=== PATIENT | male | born 1980 | race Hispanic/Latino ===

== ENCOUNTER 2022-03-13 22:04 | Inpatient (IN) | payer BC, SELFPAY ==
[2022-03-13] MEDS ORDERED: Acetaminophen 500 MG TAB ONE (23:08)
[2022-03-13 23:40] LABS: #Lymphocytes 0.8 thou/uL (1.20-3.40); #Monocytes 0.7 thou/uL (0.11-0.59); #Neutrophils 9.7 thou/uL (1.40-6.50); %Eosinophils 0.4 % (0.0-10.0); %Lymphocytes 7.4 % (21.0-51.0); %Monocytes 6.3 % (0.0-10.0); %Neutrophils 85.9 % (42.0-75.0); Hemoglobin 8.2 g/dL (14.0-18.0); Mean Corpuscular HGB CONC 33.4 g/dL (32.0-36.0); Mean Corpuscular Hemoglobin 31.7 pg (27.0-31.0); Mean Corpuscular Volume 94.8 fL (78.0-98.0); Mean Platelet Volume 8.6 fL (7.4-10.4); Platelet Count 270 thou/uL (130-400); RBC Distribution Width 12.7 % (11.5-14.5); Red Blood Cell (RBC) Count 2.58 mill/uL (4.70-6.10); White Blood Cell (WBC) Count 11.3 thou/uL (4.8-10.8)
[2022-03-13 23:56] LABS: SARS-CoV-2 NAA Rapid Test Not Detected (NotDetected)
[2022-03-14 00:01] LABS: ALT (SGPT) 24 U/L (8-55); AST (SGOT) 23 U/L (5-34); Albumin 3.6 g/dL (3.5-5.0); Alkaline Phosphatase 130 U/L (40-110); Anion Gap 16 mmol/L (10-20); BUN (Urea Nitrogen) 61 mg/dL (8.9-20.6); Bilirubin, Total 0.4 mg/dL (0.2-1.2); Calc. Creatinine Clearance 0 mL/min (70-130); Calcium 8.7 mg/dL (7.8-10.44); Carbon Dioxide 20 mmol/L (22-29); Chloride 106 mmol/L (98-107); Estimated GFR 15; Globulin 3.5 g/dL (2.4-3.5); Glucose 213 mg/dL (70-105); Potassium 4.2 mmol/L (3.5-5.1); Protein, Total 7.1 g/dL (6.0-8.3); Sodium 138 mmol/L (136-145)
[2022-03-14] MEDS ORDERED: cefTRIAXone\\ROCEPHIN 1 GM VIAL ONE (00:13)
[2022-03-14] MEDS ORDERED: Ondansetron PF 4 MG/2 ML Vial ONE (00:13)
[2022-03-14] MEDS ORDERED: Azithromycin 500 MG VIAL ONE (00:51)
[2022-03-14 00:59] LABS: Bilirubin Negative (Negative); Blood, Urine 2+ (Negative); Clarity Clear (Clear); Glucose, Urine (Dipstick) Greater than 1000 mg/dL (Negative); Ketone, Urine Negative (Negative); Leukocyte Negative Leu/uL (Negative); Nitrite Negative (Negative); Protein, Urine (Dipstick) 600 mg/dL (Neg-Trace); RBC/HPF 0-3 HPF (0-3); Specific Gravity, Urine 1.014 (1.002-1.036); Squamous Epithelial 0-3 HPF (0-3); Urobilinogen Normal mg/dL (Less than 2); WBC/HPF 0-3 HPF (0-3); pH, Urine 6.5 (5.0-9.0)
[2022-03-14 01:15] LABS: Bacteria/HPF Rare-Few HPF (None Seen)
[2022-03-14] MEDS ORDERED: Acetaminophen 500 MG TAB ONE (01:29)
[2022-03-14] MEDS ORDERED: Ondansetron PF 4 MG/2 ML Vial IVP PRN (03:42)
[2022-03-14] MEDS ORDERED: Morphine 2 MG/ML VIAL SLOW IVP PRN (03:48)
[2022-03-14] MEDS ORDERED: Dextrose 5% in Water 1,000 ML IV PRN (03:49)
[2022-03-14] MEDS ORDERED: Dextrose 50% Abboject 50 ML SYRINGE SLOW IVP PRN (03:49)
[2022-03-14] MEDS ORDERED: HumaLOG 300 UNITS/3 ML VIAL SC PRN ×2 (03:49)
[2022-03-14] MEDS ORDERED: Morphine 2 MG/ML VIAL ONE (04:17)
[2022-03-14] MEDS ORDERED: Benzonatate 100 MG CAP PO PRN (04:25)
[2022-03-14 04:49] LABS: Legionella Urinary Ag Negative (Negative); Strep pneumo Urine Ag NEGATIVE (NEGATIVE)
[2022-03-14 05:23] LABS: Iron 9 ug/dL (65-175); Iron Binding Capacity, Total 200 mcg/dL (261-462)
[2022-03-14 05:26] LABS: Anion Gap 15 mmol/L (10-20); BUN (Urea Nitrogen) 60 mg/dL (8.9-20.6); Calc. Creatinine Clearance 0 mL/min (70-130); Calcium 8.3 mg/dL (7.8-10.44); Carbon Dioxide 21 mmol/L (22-29); Chloride 107 mmol/L (98-107); Estimated GFR 15; Glucose 161 mg/dL (70-105); Iron 11 ug/dL (65-175); Iron Binding Capacity, Total 195 mcg/dL (261-462); Potassium 4.1 mmol/L (3.5-5.1); Sodium 139 mmol/L (136-145)
[2022-03-14 05:29] LABS: Mean Corpuscular HGB CONC 32.9 g/dL (32.0-36.0); Mean Corpuscular Hemoglobin 30.8 pg (27.0-31.0); Mean Corpuscular Volume 93.7 fL (78.0-98.0); Mean Platelet Volume 8.6 fL (7.4-10.4); Platelet Count 250 thou/uL (130-400); RBC Distribution Width 12.8 % (11.5-14.5); Red Blood Cell (RBC) Count 2.61 mill/uL (4.70-6.10); White Blood Cell (WBC) Count 5.9 thou/uL (4.8-10.8)
[2022-03-14 05:56] LABS: Band 31 % (5-11); Lymphocytes 11 % (21-51); MDiff Complete? YES; Metamyelocyte 3 % (0-0); Monocytes 8 % (0-10); Myelocyte 1 % (0-0); Neutrophil 44 % (42-75); Platelet Morphology Comment Appears Adequate; RBC Morphology Normal
[2022-03-14] MEDS: Acetaminophen 325 MG TAB PO PRN (10:42)
[2022-03-14 11:24] VITALS: BMI 35.6
[2022-03-14] MEDS ORDERED: Furosemide 100 MG/10 ML VIAL SLOW IVP SCH (18:47)
[2022-03-14] MEDS: Carvedilol 6.25 MG TAB PO SCH (21:22)
[2022-03-15] MEDS: cefTRIAXone\\ROCEPHIN 2 GM in Sodium Chloride 0.9% 100 ML IVPB SCH (00:01)
[2022-03-15] MEDS: Azithromycin 500 MG in Sodium Chloride 0.9% 250 ML 250 ML IVPB SCH (00:30)
[2022-03-15 05:46] LABS: #Eosinphils 0.1 thou/uL (0.0-0.7); #Lymphocytes 1.3 thou/uL (1.20-3.40); #Monocytes 0.5 thou/uL (0.11-0.59); #Neutrophils 6.6 thou/uL (1.40-6.50); %Basophils 0.5 % (0.0-1.0); %Eosinophils 0.7 % (0.0-10.0); %Lymphocytes 15.8 % (21.0-51.0); %Monocytes 5.3 % (0.0-10.0); %Neutrophils 77.7 % (42.0-75.0); Mean Corpuscular HGB CONC 32.3 g/dL (32.0-36.0); Mean Corpuscular Hemoglobin 31.1 pg (27.0-31.0); Mean Corpuscular Volume 96.2 fL (78.0-98.0); Mean Platelet Volume 8.9 fL (7.4-10.4); Platelet Count 221 thou/uL (130-400); RBC Distribution Width 12.6 % (11.5-14.5); Red Blood Cell (RBC) Count 2.26 mill/uL (4.70-6.10); White Blood Cell (WBC) Count 8.5 thou/uL (4.8-10.8)
[2022-03-15] MEDS: Furosemide 40 MG/4 ML VIAL SLOW IVP SCH ×2 (05:58→14:23)
[2022-03-15 06:01] LABS: Anion Gap 15 mmol/L (10-20); BUN (Urea Nitrogen) 66 mg/dL (8.9-20.6); Calc. Creatinine Clearance 28 mL/min (70-130); Calcium 8.2 mg/dL (7.8-10.44); Carbon Dioxide 22 mmol/L (22-29); Chloride 106 mmol/L (98-107); Estimated GFR 15; Glucose 133 mg/dL (70-105); Potassium 4.7 mmol/L (3.5-5.1); Sodium 138 mmol/L (136-145)
[2022-03-15] MEDS ORDERED: Iron, Sodium Ferric Gluconate 250 MG in Sodium Chloride 0.9% 250 ML 250 ML IVPB SCH (09:30)
[2022-03-15] MEDS: Ferrous Sulfate 325 MG TAB PO SCH (10:35)
[2022-03-15] MEDS: Amlodipine 10 MG TAB PO SCH (10:36)
[2022-03-15] MEDS: Carvedilol 6.25 MG TAB PO SCH ×2 (10:36→20:59)
[2022-03-15] MEDS: Minoxidil 10 MG TAB PO SCH (10:36)
[2022-03-15] MEDS: HumuLIN 70/30 (300 UNITS/3 ML VIAL) SC SCH (11:15)
[2022-03-15 12:24] LABS: Hemoglobin 7.7 g/dL (14.0-18.0)
[2022-03-15] MEDS: Acetaminophen 325 MG TAB PO PRN (20:59)
[2022-03-16] MEDS: cefTRIAXone\\ROCEPHIN 2 GM in Sodium Chloride 0.9% 100 ML IVPB SCH ×2 (01:15→23:17)
[2022-03-16] MEDS: Azithromycin 500 MG in Sodium Chloride 0.9% 250 ML 250 ML IVPB SCH ×2 (01:41→23:46)
[2022-03-16 04:49] LABS: #Eosinphils 0.2 thou/uL (0.0-0.7); #Lymphocytes 1.6 thou/uL (1.20-3.40); #Monocytes 0.4 thou/uL (0.11-0.59); #Neutrophils 6.1 thou/uL (1.40-6.50); %Basophils 0.5 % (0.0-1.0); %Lymphocytes 18.7 % (21.0-51.0); %Neutrophils 72.8 % (42.0-75.0); Hemoglobin 6.8 g/dL (14.0-18.0); Mean Corpuscular HGB CONC 32.1 g/dL (32.0-36.0); Mean Corpuscular Hemoglobin 30.6 pg (27.0-31.0); Mean Corpuscular Volume 95.3 fL (78.0-98.0); Mean Platelet Volume 8.7 fL (7.4-10.4); Platelet Count 253 thou/uL (130-400); RBC Distribution Width 12.6 % (11.5-14.5); Red Blood Cell (RBC) Count 2.21 mill/uL (4.70-6.10); White Blood Cell (WBC) Count 8.4 thou/uL (4.8-10.8)
[2022-03-16 05:00] LABS: Anion Gap 14 mmol/L (10-20); BUN (Urea Nitrogen) 65 mg/dL (8.9-20.6); Calc. Creatinine Clearance 28 mL/min (70-130); Calcium 8.1 mg/dL (7.8-10.44); Carbon Dioxide 24 mmol/L (22-29); Chloride 106 mmol/L (98-107); Estimated GFR 14; Glucose 156 mg/dL (70-105); Potassium 4.5 mmol/L (3.5-5.1); Sodium 139 mmol/L (136-145)
[2022-03-16] MEDS: Furosemide 40 MG/4 ML VIAL SLOW IVP SCH ×2 (05:51→16:43)
[2022-03-16] MEDS: Empagliflozin 10 MG TAB PO SCH (09:00)
[2022-03-16] MEDS: Ferrous Sulfate 325 MG TAB PO SCH (09:00)
[2022-03-16] MEDS ORDERED: Epoetin (ESRD) 10,000 UNITS/ML VIAL SC SCH (09:00)
[2022-03-16] MEDS: Amlodipine 10 MG TAB PO SCH (09:00)
[2022-03-16] MEDS: Minoxidil 10 MG TAB PO SCH (09:02)
[2022-03-16] MEDS: HumuLIN 70/30 (300 UNITS/3 ML VIAL) SC SCH (09:04)
[2022-03-16] MEDS: Iron, Sodium Ferric Gluconate 250 MG in Sodium Chloride 0.9% 250 ML 250 ML IVPB SCH (09:05)
[2022-03-16] MEDS: hydrALAZINE 20 MG/ML VIAL SLOW IVP PRN (16:43)
[2022-03-16] MEDS: hydrALAZINE 25 MG TAB PO SCH (20:27)
[2022-03-16] MEDS ORDERED: Carvedilol 25 MG TAB PO SCH (21:00)
[2022-03-17 04:46] LABS: #Eosinphils 0.3 thou/uL (0.0-0.7); #Lymphocytes 1.5 thou/uL (1.20-3.40); #Monocytes 0.5 thou/uL (0.11-0.59); #Neutrophils 5.6 thou/uL (1.40-6.50); %Basophils 0.4 % (0.0-1.0); %Eosinophils 3.2 % (0.0-10.0); %Lymphocytes 19.3 % (21.0-51.0); %Monocytes 5.9 % (0.0-10.0); %Neutrophils 71.1 % (42.0-75.0); Hemoglobin 8.1 g/dL (14.0-18.0); Mean Corpuscular HGB CONC 32.4 g/dL (32.0-36.0); Mean Corpuscular Hemoglobin 31.1 pg (27.0-31.0); Mean Corpuscular Volume 96.1 fL (78.0-98.0); Mean Platelet Volume 8.8 fL (7.4-10.4); Platelet Count 289 thou/uL (130-400); RBC Distribution Width 12.3 % (11.5-14.5); Red Blood Cell (RBC) Count 2.59 mill/uL (4.70-6.10); White Blood Cell (WBC) Count 7.9 thou/uL (4.8-10.8)
[2022-03-17 05:09] LABS: Anion Gap 17 mmol/L (10-20); BUN (Urea Nitrogen) 65 mg/dL (8.9-20.6); Calc. Creatinine Clearance 28 mL/min (70-130); Calcium 8.3 mg/dL (7.8-10.44); Carbon Dioxide 16 mmol/L (22-29); Chloride 109 mmol/L (98-107); Estimated GFR 15; Glucose 105 mg/dL (70-105); Potassium 4.3 mmol/L (3.5-5.1); Sodium 138 mmol/L (136-145)
[2022-03-17] MEDS: Docusate 100 MG CAP PO PRN (06:19)
[2022-03-17] MEDS: Furosemide 40 MG/4 ML VIAL SLOW IVP SCH ×2 (06:19→14:14)
[2022-03-17] MEDS: Ferrous Sulfate 325 MG TAB PO SCH (09:01)
[2022-03-17] MEDS: Empagliflozin 10 MG TAB PO SCH (09:01)
[2022-03-17] MEDS: Amlodipine 10 MG TAB PO SCH (09:01)
[2022-03-17] MEDS: HumuLIN 70/30 (300 UNITS/3 ML VIAL) SC SCH (09:02)
[2022-03-17] MEDS: hydrALAZINE 25 MG TAB PO SCH (09:03)
[2022-03-17] MEDS: Labetalol HCl 100 MG TAB PO SCH ×2 (09:03→20:39)
[2022-03-17] MEDS: Minoxidil 10 MG TAB PO SCH (09:07)
[2022-03-17] MEDS ORDERED: Sodium Bicarbonate Tab 325 MG TAB PO SCH (10:30)
[2022-03-17] MEDS: Iron, Sodium Ferric Gluconate 250 MG in Sodium Chloride 0.9% 250 ML 250 ML IVPB SCH (11:28)
[2022-03-17] MEDS: Sodium Bicarbonate Tab 325 MG TAB PO SCH (20:39)
[2022-03-17] MEDS: Amoxicillin/Potassium Clav 500 MG TAB PO SCH (20:39)
[2022-03-17] MEDS: NIFEdipine XL 60 MG TAB PO SCH (20:39)
[2022-03-18] MEDS: Furosemide 40 MG/4 ML VIAL SLOW IVP SCH (05:53)
[2022-03-18] MEDS: Docusate 100 MG CAP PO PRN (05:53)
[2022-03-18] MEDS: Amoxicillin/Potassium Clav 500 MG TAB PO SCH ×2 (09:38→21:27)
[2022-03-18] MEDS: Ferrous Sulfate 325 MG TAB PO SCH (09:38)
[2022-03-18] MEDS: HumuLIN 70/30 (300 UNITS/3 ML VIAL) SC SCH (09:39)
[2022-03-18] MEDS: Empagliflozin 10 MG TAB PO SCH (09:39)
[2022-03-18] MEDS: Labetalol HCl 100 MG TAB PO SCH ×2 (09:42→21:27)
[2022-03-18] MEDS: NIFEdipine XL 60 MG TAB PO SCH ×2 (09:42→21:27)
[2022-03-18] MEDS: Iron, Sodium Ferric Gluconate 250 MG in Sodium Chloride 0.9% 250 ML 250 ML IVPB SCH (09:42)
[2022-03-18] MEDS: Sodium Bicarbonate Tab 325 MG TAB PO SCH ×2 (09:44→21:26)
[2022-03-18] MEDS: Torsemide 100 MG TAB PO SCH (09:45)
[2022-03-18] MEDS ORDERED: Epoetin (ESRD) 10,000 UNITS/ML VIAL SC SCH (10:00)
[2022-03-19] MEDS ORDERED: Polyethylene Glycol 3350 17 GM Packet PO SCH (09:00)
[2022-03-19] MEDS ORDERED: Senokot S 8.6-50 MG TAB PO SCH (09:00)
[2022-03-19] MEDS ORDERED: Fluticasone Propionate Nasal Spray 16 gm Bottle NASAL SCH (09:15)
[2022-03-19] MEDS: Ferrous Sulfate 325 MG TAB PO SCH (09:16)
[2022-03-19] MEDS: Sodium Bicarbonate Tab 325 MG TAB PO SCH (09:17)
[2022-03-19] MEDS: Labetalol HCl 100 MG TAB PO SCH (09:17)
[2022-03-19] MEDS: Empagliflozin 10 MG TAB PO SCH (09:18)
[2022-03-19] MEDS: NIFEdipine XL 60 MG TAB PO SCH (09:18)
[2022-03-19] MEDS: Amoxicillin/Potassium Clav 500 MG TAB PO SCH (09:19)
[2022-03-19] MEDS: Torsemide 100 MG TAB PO SCH (09:19)
[2022-03-19 10:08] LABS: Hemoglobin 8.6 g/dL (14.0-18.0); Mean Corpuscular HGB CONC 32.1 g/dL (32.0-36.0); Mean Corpuscular Hemoglobin 30.6 pg (27.0-31.0); Mean Corpuscular Volume 95.4 fL (78.0-98.0); Mean Platelet Volume 7.8 fL (7.4-10.4); Platelet Count 349 thou/uL (130-400); RBC Distribution Width 12.7 % (11.5-14.5); Red Blood Cell (RBC) Count 2.82 mill/uL (4.70-6.10); White Blood Cell (WBC) Count 8.7 thou/uL (4.8-10.8)
[2022-03-19 10:38] LABS: Anion Gap 18 mmol/L (10-20); BUN (Urea Nitrogen) 60 mg/dL (8.9-20.6); BUN/Creatinine Ratio 11.86; Calc. Creatinine Clearance 26 mL/min (70-130); Calcium 8.3 mg/dL (7.8-10.44); Carbon Dioxide 21 mmol/L (22-29); Chloride 105 mmol/L (98-107); Estimated GFR 14; Glucose 157 mg/dL (70-105); Phosphorus 5.2 mg/dL (2.3-4.7); Potassium 3.8 mmol/L (3.5-5.1); Sodium 140 mmol/L (136-145)
[2022-03-19] MEDS: HumuLIN 70/30 (300 UNITS/3 ML VIAL) SC SCH (10:54)
[2022-03-19] MEDS: hydrALAZINE 20 MG/ML VIAL SLOW IVP PRN (11:01)
[2022-03-19] MEDS ORDERED: Labetalol HCl 100 MG TAB PO SCH ×2 (13:30→21:00)
[2022-03-19 17:21] VITALS: BP 156/78; TEMP 97.6
[2022-03-20] MEDS ORDERED: NPH, Human Insulin Isophane 300 UNIT/3 ML VIAL SC SCH (09:00)
[2022-03-20] MEDS ORDERED: Fluticasone Propionate Nasal Spray 16 gm Bottle NASAL SCH (09:00)
== END 2022-03-19 18:20 | disposition home or self-care (01) | DRG 871 ==
LOC: ERS 22:04 → ERHOLD 03-14 01:08 → 2SW 03-14 01:11
PROVIDERS: ADMIT Internal Medicine; ATTEND Internal Medicine
PROC: 3E03329 Introduction of Other Anti-infective into Peripheral Vein, Percutaneous Approach (ICD-10-PCS; principal; 2022-03-14)
PROC: 30233N1 Transfusion of Nonautologous Red Blood Cells into Peripheral Vein, Percutaneous Approach (ICD-10-PCS; 2022-03-16)
DX: A41.9 Sepsis, unspecified organism (principal); J18.9 Pneumonia, unspecified organism; J96.01 Acute respiratory failure with hypoxia; R04.2 Hemoptysis; N17.9 Acute kidney failure, unspecified; E87.2 Acidosis; D62 Acute posthemorrhagic anemia; I13.0 Hypertensive heart and chronic kidney disease with heart failure and stage 1 through stage 4 chronic kidney disease, or unspecified chronic kidney disease; N18.4 Chronic kidney disease, stage 4 (severe); Z20.822 Contact with and (suspected) exposure to COVID-19; D63.1 Anemia in chronic kidney disease; I50.9 Heart failure, unspecified; E11.22 Type 2 diabetes mellitus with diabetic chronic kidney disease; I49.3 Ventricular premature depolarization; R65.20 Severe sepsis without septic shock; K59.00 Constipation, unspecified; E66.9 Obesity, unspecified; I34.0 Nonrheumatic mitral (valve) insufficiency; I45.10 Unspecified right bundle-branch block; D50.9 Iron deficiency anemia, unspecified; I87.8 Other specified disorders of veins; Z89.421 Acquired absence of other right toe(s); Z79.899 Other long term (current) drug therapy; Z79.4 Long term (current) use of insulin; Z68.34 Body mass index [BMI] 34.0-34.9, adult
CPT/HCPCS: 36415; 36416; 36430; 71045; 71250; 80048; 80053; 80069; 81003; 81015; 82728; 83540; 83550; 83605; 83880; 83970; 84484; 85025; 85027; 86850; 86900; 86901; 87040; 87070; 87086; 87116; 87205; 87206; 87449; 87899; 93306; 96365; 96367; 96375; J0360; J0456; J0696; J1815; J1940; J2270; J2405; J2916; J3490; J7050; P9016; Q4081; U0002

== ENCOUNTER 2022-07-30 12:40 | Inpatient (IN) | payer BC, MEDICAID, SELFPAY ==
[2022-07-30 13:23] LABS: #Eosinphils 0.1 thou/uL (0.0-0.7); #Lymphocytes 1.5 thou/uL (1.20-3.40); #Monocytes 0.2 thou/uL (0.11-0.59); #Neutrophils 2.8 thou/uL (1.40-6.50); %Basophils 0.5 % (0.0-1.0); %Eosinophils 2.8 % (0.0-10.0); %Lymphocytes 31.7 % (21.0-51.0); %Monocytes 4.3 % (0.0-10.0); %Neutrophils 60.6 % (42.0-75.0); Hemoglobin 7.4 g/dL (14.0-18.0); Mean Corpuscular HGB CONC 32.1 g/dL (32.0-36.0); Mean Corpuscular Hemoglobin 31.1 pg (27.0-31.0); Mean Corpuscular Volume 96.9 fl (78.0-98.0); Mean Platelet Volume 8.7 fL (7.4-10.4); Platelet Count 196 10x3/uL (130-400); RBC Distribution Width 12.9 % (11.5-14.5); Red Blood Cell (RBC) Count 2.37 mill/uL (4.70-6.10); White Blood Cell (WBC) Count 4.6 10x3/uL (4.8-10.8)
[2022-07-30 13:46] LABS: ALT (SGPT) 18 U/L (8-55); AST (SGOT) 21 U/L (5-34); Albumin 2.5 g/dL (3.5-5.0); Alkaline Phosphatase 91 U/L (40-110); Anion Gap 11 mmol/L (10-20); BUN (Urea Nitrogen) 86 mg/dL (8.9-20.6); Bilirubin, Total 0.3 mg/dL (0.2-1.2); Calc. Creatinine Clearance 0 mL/min (70-130); Calcium 7.5 mg/dL (7.8-10.44); Carbon Dioxide 18 mmol/L (22-29); Chloride 111 mmol/L (98-107); Estimated GFR 8; Globulin 2.6 g/dL (2.4-3.5); Glucose 165 mg/dL (70-105); Lipase 26 U/L (8-78); Potassium 4.3 mmol/L (3.5-5.1); Protein, Total 5.1 g/dL (6.0-8.3); Sodium 136 mmol/L (136-145)
[2022-07-30] MEDS ORDERED: Dextrose 5% in Water 1,000 ML IV PRN (17:33)
[2022-07-30] MEDS ORDERED: Dextrose 50% Abboject 50 ML SYRINGE SLOW IVP PRN (17:33)
[2022-07-30] MEDS ORDERED: Ondansetron PF 4 MG/2 ML Vial IVP PRN (17:33)
[2022-07-30] MEDS ORDERED: Sodium Chloride 0.9% 1,000 ML IV SCH (17:45)
[2022-07-30] MEDS ORDERED: Ondansetron PF 4 MG/2 ML Vial ONE (18:04)
[2022-07-30] MEDS ORDERED: Polyethylene Glycol 3350 17 GM Packet PO SCH (18:30)
[2022-07-30] MEDS ORDERED: Metoclopramide HCl 10 MG/2 ML VIAL IVP SCH (18:30)
[2022-07-30] MEDS ORDERED: Senokot S 8.6-50 MG TAB PO PRN (18:33)
[2022-07-30 18:42] LABS: Hemoglobin A1c 6.7 % (4.0-6.0)
[2022-07-30] MEDS: Amlodipine 5 MG TAB PO SCH ×2 (20:56→21:58)
[2022-07-30] MEDS ORDERED: Sodium Bicarbonate 150 MEQ in Sterile Water Injection 1,000 ML IV SCH (21:30)
[2022-07-30] MEDS: Metoclopramide HCl 10 MG/2 ML VIAL IVP SCH (21:32)
[2022-07-30 23:39] VITALS: BMI 31.0
[2022-07-31] MEDS ORDERED: Furosemide 40 MG/4 ML VIAL SLOW IVP SCH ×2 (00:30→01:30)
[2022-07-31] MEDS ORDERED: cloNIDine 0.1 MG TAB PO SCH (00:45)
[2022-07-31 02:02] LABS: Bacteria/HPF None Seen HPF (None Seen); Bilirubin Negative (Negative); Blood, Urine 2+ (Negative); Clarity Clear (Clear); Glucose, Urine (Dipstick) Greater than 1000 mg/dL (Negative); Ketone, Urine Negative (Negative); Leukocyte Negative Leu/uL (Negative); Nitrite Negative (Negative); Protein, Urine (Dipstick) 300 mg/dL (Neg-Trace); RBC/HPF 0-3 HPF (0-3); Specific Gravity, Urine 1.012 (1.002-1.036); Squamous Epithelial 0-3 HPF (0-3); Urobilinogen Normal mg/dL (Less than 2)
[2022-07-31 02:19] LABS: #Eosinphils 0.2 thou/uL (0.0-0.7); #Monocytes 0.3 thou/uL (0.11-0.59); #Neutrophils 3.5 thou/uL (1.40-6.50); %Basophils 0.6 % (0.0-1.0); %Lymphocytes 32.2 % (21.0-51.0); %Monocytes 5.4 % (0.0-10.0); %Neutrophils 57.7 % (42.0-75.0); Hemoglobin 7.6 g/dL (14.0-18.0); Mean Corpuscular HGB CONC 33.4 g/dL (32.0-36.0); Mean Corpuscular Hemoglobin 32.2 pg (27.0-31.0); Mean Corpuscular Volume 96.4 fl (78.0-98.0); Mean Platelet Volume 8.8 fL (7.4-10.4); Platelet Count 196 10x3/uL (130-400); RBC Distribution Width 12.9 % (11.5-14.5); Red Blood Cell (RBC) Count 2.36 mill/uL (4.70-6.10); White Blood Cell (WBC) Count 6.1 10x3/uL (4.8-10.8)
[2022-07-31 02:53] LABS: Anion Gap 15 mmol/L (10-20); BUN (Urea Nitrogen) 87 mg/dL (8.9-20.6); Calc. Creatinine Clearance 14 mL/min (70-130); Calcium 7.5 mg/dL (7.8-10.44); Carbon Dioxide 15 mmol/L (22-29); Chloride 112 mmol/L (98-107); Estimated GFR 8; Glucose 184 mg/dL (70-105); Iron 92 ug/dL (65-175); Iron Binding Capacity, Total 155 mcg/dL (261-462); Potassium 4.5 mmol/L (3.5-5.1); Sodium 137 mmol/L (136-145)
[2022-07-31] MEDS ORDERED: hydrALAZINE 20 MG/ML VIAL SLOW IVP SCH (03:30)
[2022-07-31 04:27] LABS: Ferritin 889.23 ng/mL (22-322)
[2022-07-31] MEDS: Furosemide 40 MG/4 ML VIAL SLOW IVP SCH ×2 (05:02→14:43)
[2022-07-31] MEDS ORDERED: Epoetin (ESRD) 10,000 UNITS/ML VIAL SC SCH (09:00)
[2022-07-31] MEDS: Metoclopramide HCl 10 MG/2 ML VIAL IVP SCH ×2 (09:06→21:02)
[2022-07-31] MEDS: Polyethylene Glycol 3350 17 GM Packet PO SCH (09:06)
[2022-07-31] MEDS ORDERED: Amlodipine 10 MG TAB PO SCH (09:30)
[2022-07-31] MEDS ORDERED: Metolazone 5 MG TAB PO SCH (09:30)
[2022-07-31] MEDS ORDERED: Sodium Bicarbonate Tab 325 MG TAB PO SCH (09:45)
[2022-07-31] MEDS ORDERED: Carvedilol 6.25 MG TAB PO SCH (09:45)
[2022-07-31] MEDS: Iron, Sodium Ferric Gluconate 250 MG in Sodium Chloride 0.9% 250 ML 250 ML IVPB SCH (11:10)
[2022-07-31] MEDS: HumaLOG 300 UNITS/3 ML VIAL SC PRN (13:09)
[2022-07-31 13:49] LABS: HBSAg Index 0.31 S/CO (0-0.99); Hep B Core Total Ab Non-Reactive (NonReactive); Hep B Core Total Index 0.06 S/CO (0-0.79); Hep B Surf Ag Non-Reactive S/CO (NonReactive); Hep C IgG Ab Non-Reactive (NonReactive); Hep C Index 0.05 S/CO (0-0.79)
[2022-07-31 14:00] LABS: HBSAB Concentration 76.05 mIU/mL; Hep B Surf AB Reactive (NonReactive)
[2022-07-31] MEDS: Sodium Bicarbonate Tab 325 MG TAB PO SCH ×2 (14:43→21:01)
[2022-07-31] MEDS: Carvedilol 6.25 MG TAB PO SCH (21:02)
[2022-08-01] MEDS: Furosemide 40 MG/4 ML VIAL SLOW IVP SCH ×2 (06:41→16:55)
[2022-08-01] MEDS ORDERED: Amlodipine 10 MG TAB PO SCH (09:00)
[2022-08-01] MEDS: Metolazone 5 MG TAB PO SCH (09:07)
[2022-08-01] MEDS: Polyethylene Glycol 3350 17 GM Packet PO SCH (09:08)
[2022-08-01] MEDS: Carvedilol 6.25 MG TAB PO SCH (09:08)
[2022-08-01] MEDS: Sodium Bicarbonate Tab 325 MG TAB PO SCH ×3 (09:08→22:28)
[2022-08-01 09:35] LABS: Albumin 2.7 g/dL (3.5-5.0); Anion Gap 13 mmol/L (10-20); BUN (Urea Nitrogen) 85 mg/dL (8.9-20.6); BUN/Creatinine Ratio 9.73; Calc. Creatinine Clearance 14 mL/min (70-130); Calcium 7.4 mg/dL (7.8-10.44); Carbon Dioxide 18 mmol/L (22-29); Chloride 110 mmol/L (98-107); Estimated GFR 7; Glucose 169 mg/dL (70-105); Phosphorus 6.3 mg/dL (2.3-4.7); Potassium 4.4 mmol/L (3.5-5.1); Sodium 137 mmol/L (136-145)
[2022-08-01] MEDS: Iron, Sodium Ferric Gluconate 250 MG in Sodium Chloride 0.9% 250 ML 250 ML IVPB SCH (10:29)
[2022-08-01] MEDS: Metoclopramide HCl 10 MG/2 ML VIAL IVP SCH ×2 (10:47→22:29)
[2022-08-01] MEDS ORDERED: Ergocalciferol 1.25 MG(50,000 UNITS) CAP PO SCH (13:00)
[2022-08-01] MEDS ORDERED: Bisacodyl 10 MG SUPP PR PRN (14:20)
[2022-08-01] MEDS ORDERED: Fleet Enema 133 ML BOT PR SCH (19:45)
[2022-08-01] MEDS: NIFEdipine XL 60 MG TAB PO SCH (22:29)
[2022-08-01] MEDS: Senokot S 8.6-50 MG TAB PO SCH (22:29)
[2022-08-01] MEDS: Labetalol HCl 100 MG TAB PO SCH (22:29)
[2022-08-02] MEDS: Furosemide 40 MG/4 ML VIAL SLOW IVP SCH (06:29)
[2022-08-02] MEDS: Metoclopramide HCl 10 MG/2 ML VIAL IVP SCH ×4 (08:10→22:21)
[2022-08-02] MEDS: NIFEdipine XL 60 MG TAB PO SCH ×2 (08:11→22:20)
[2022-08-02] MEDS: Sodium Bicarbonate Tab 325 MG TAB PO SCH ×3 (08:11→22:29)
[2022-08-02] MEDS: Senokot S 8.6-50 MG TAB PO SCH ×2 (08:11→22:20)
[2022-08-02] MEDS: Labetalol HCl 100 MG TAB PO SCH ×2 (08:11→22:21)
[2022-08-02] MEDS: Calcitriol 0.25 MCG CAP PO SCH (08:11)
[2022-08-02] MEDS: Polyethylene Glycol 3350 17 GM Packet PO SCH (08:11)
[2022-08-02] MEDS: Metolazone 5 MG TAB PO SCH (08:11)
[2022-08-02] MEDS: Iron, Sodium Ferric Gluconate 250 MG in Sodium Chloride 0.9% 250 ML 250 ML IVPB SCH (08:38)
[2022-08-02] MEDS ORDERED: FLU VACC QS2022-23(6MOS UP)/PF 60 MCG/0.5 ML SYRINGE IM ONE (09:00)
[2022-08-02 10:55] LABS: Albumin 2.4 g/dL (3.5-5.0); Anion Gap 13 mmol/L (10-20); BUN (Urea Nitrogen) 52 mg/dL (8.9-20.6); Calc. Creatinine Clearance 19 mL/min (70-130); Calcium 7.2 mg/dL (7.8-10.44); Carbon Dioxide 25 mmol/L (22-29); Chloride 105 mmol/L (98-107); Estimated GFR 11; Glucose 196 mg/dL (70-105); Phosphorus 4.3 mg/dL (2.3-4.7); Potassium 3.5 mmol/L (3.5-5.1); Sodium 139 mmol/L (136-145)
[2022-08-02] MEDS: HumaLOG 300 UNITS/3 ML VIAL SC PRN (17:48)
[2022-08-03 07:15] LABS: #Eosinphils 0.2 thou/uL (0.0-0.7); #Lymphocytes 1.9 thou/uL (1.20-3.40); #Monocytes 0.5 thou/uL (0.11-0.59); #Neutrophils 4.6 thou/uL (1.40-6.50); %Basophils 0.3 % (0.0-1.0); %Eosinophils 2.8 % (0.0-10.0); %Lymphocytes 26.1 % (21.0-51.0); %Monocytes 6.5 % (0.0-10.0); %Neutrophils 64.3 % (42.0-75.0); Hemoglobin 7.1 g/dL (14.0-18.0); Mean Corpuscular HGB CONC 32.9 g/dL (32.0-36.0); Mean Corpuscular Hemoglobin 31.7 pg (27.0-31.0); Mean Corpuscular Volume 96.5 fl (78.0-98.0); Mean Platelet Volume 8.6 fL (7.4-10.4); Platelet Count 242 10x3/uL (130-400); RBC Distribution Width 13.2 % (11.5-14.5); Red Blood Cell (RBC) Count 2.25 mill/uL (4.70-6.10); White Blood Cell (WBC) Count 7.2 10x3/uL (4.8-10.8)
[2022-08-03 07:43] LABS: Albumin 2.5 g/dL (3.5-5.0); Anion Gap 11 mmol/L (10-20); BUN (Urea Nitrogen) 37 mg/dL (8.9-20.6); BUN/Creatinine Ratio 6.51; Calc. Creatinine Clearance 21 mL/min (70-130); Calcium 7.5 mg/dL (7.8-10.44); Carbon Dioxide 27 mmol/L (22-29); Chloride 104 mmol/L (98-107); Estimated GFR 12; Glucose 156 mg/dL (70-105); Phosphorus 4.3 mg/dL (2.3-4.7); Potassium 3.9 mmol/L (3.5-5.1); Sodium 138 mmol/L (136-145)
[2022-08-03] MEDS: Metoclopramide HCl 10 MG/2 ML VIAL IVP SCH ×2 (08:29→21:13)
[2022-08-03] MEDS: Labetalol HCl 100 MG TAB PO SCH ×2 (08:32→19:32)
[2022-08-03] MEDS: Sodium Bicarbonate Tab 325 MG TAB PO SCH ×3 (08:32→21:36)
[2022-08-03] MEDS: Polyethylene Glycol 3350 17 GM Packet PO SCH (08:32)
[2022-08-03] MEDS: NIFEdipine XL 60 MG TAB PO SCH ×2 (08:33→21:12)
[2022-08-03] MEDS: Calcitriol 0.25 MCG CAP PO SCH (08:33)
[2022-08-03] MEDS: Senokot S 8.6-50 MG TAB PO SCH ×2 (08:33→21:12)
[2022-08-03] MEDS: Metolazone 5 MG TAB PO SCH (08:33)
[2022-08-03] MEDS: Torsemide 100 MG TAB PO SCH (08:35)
[2022-08-03] MEDS: Iron, Sodium Ferric Gluconate 250 MG in Sodium Chloride 0.9% 250 ML 250 ML IVPB SCH (09:00)
[2022-08-03] MEDS: Epoetin (ESRD) 10,000 UNITS/ML VIAL SC SCH (16:05)
[2022-08-03] MEDS ORDERED: Carvedilol 6.25 MG TAB PO SCH (21:00)
[2022-08-03] MEDS: Acetaminophen 325 MG TAB PO PRN (21:12)
[2022-08-03] MEDS: HumaLOG 300 UNITS/3 ML VIAL SC PRN (21:13)
[2022-08-03] MEDS ORDERED: Losartan 25 MG TAB PO SCH (23:15)
[2022-08-04 08:47] LABS: Albumin 2.5 g/dL (3.5-5.0); Anion Gap 11 mmol/L (10-20); BUN (Urea Nitrogen) 22 mg/dL (8.9-20.6); BUN/Creatinine Ratio 5.13; Calc. Creatinine Clearance 28 mL/min (70-130); Calcium 8.2 mg/dL (7.8-10.44); Carbon Dioxide 29 mmol/L (22-29); Chloride 104 mmol/L (98-107); Estimated GFR 17; Glucose 136 mg/dL (70-105); Phosphorus 3.7 mg/dL (2.3-4.7); Potassium 4.2 mmol/L (3.5-5.1); Sodium 140 mmol/L (136-145)
[2022-08-04] MEDS: Sodium Bicarbonate Tab 325 MG TAB PO SCH (09:05)
[2022-08-04] MEDS: Ferrous Sulfate 325 MG TAB PO SCH (09:06)
[2022-08-04] MEDS: Calcitriol 0.25 MCG CAP PO SCH (09:06)
[2022-08-04] MEDS: NIFEdipine XL 60 MG TAB PO SCH ×2 (09:06→20:59)
[2022-08-04] MEDS: Senokot S 8.6-50 MG TAB PO SCH ×2 (09:07→20:59)
[2022-08-04] MEDS: Fluticasone Propionate Nasal Spray 16 gm Bottle NASAL SCH (09:07)
[2022-08-04] MEDS: Metolazone 5 MG TAB PO SCH (09:07)
[2022-08-04] MEDS: Torsemide 100 MG TAB PO SCH (09:07)
[2022-08-04] MEDS: Polyethylene Glycol 3350 17 GM Packet PO SCH (09:08)
[2022-08-04] MEDS: Labetalol HCl 100 MG TAB PO SCH ×2 (09:44→22:21)
[2022-08-04] MEDS ORDERED: Losartan 25 MG TAB PO SCH (11:00)
[2022-08-04] MEDS: hydrALAZINE 25 MG TAB PO SCH ×2 (15:12→20:58)
[2022-08-04] MEDS: Losartan 25 MG TAB PO SCH (20:59)
[2022-08-04] MEDS: Ondansetron ODT 4 MG TAB PO PRN (21:05)
[2022-08-05] MEDS: Acetaminophen 325 MG TAB PO PRN (04:53)
[2022-08-05 07:49] LABS: Albumin 2.5 g/dL (3.5-5.0); Anion Gap 13 mmol/L (10-20); BUN (Urea Nitrogen) 25 mg/dL (8.9-20.6); BUN/Creatinine Ratio 4.53; Calc. Creatinine Clearance 22 mL/min (70-130); Carbon Dioxide 27 mmol/L (22-29); Chloride 104 mmol/L (98-107); Estimated GFR 13; Glucose 138 mg/dL (70-105); Phosphorus 4.5 mg/dL (2.3-4.7); Potassium 4.2 mmol/L (3.5-5.1); Sodium 140 mmol/L (136-145)
[2022-08-05] MEDS ORDERED: Losartan 25 MG TAB PO SCH (09:00)
[2022-08-05] MEDS ORDERED: Minoxidil 2.5 MG TAB PO SCH (09:00)
[2022-08-05] MEDS: Polyethylene Glycol 3350 17 GM Packet PO SCH (10:29)
[2022-08-05] MEDS: Ferrous Sulfate 325 MG TAB PO SCH (10:30)
[2022-08-05] MEDS: Metolazone 5 MG TAB PO SCH (10:30)
[2022-08-05] MEDS: Losartan 25 MG TAB PO SCH ×2 (10:30→20:31)
[2022-08-05] MEDS: Senokot S 8.6-50 MG TAB PO SCH ×2 (10:30→20:32)
[2022-08-05] MEDS: Torsemide 100 MG TAB PO SCH (10:30)
[2022-08-05] MEDS: Calcitriol 0.25 MCG CAP PO SCH (10:30)
[2022-08-05] MEDS: NIFEdipine XL 60 MG TAB PO SCH ×2 (10:30→20:32)
[2022-08-05] MEDS: Labetalol HCl 100 MG TAB PO SCH ×2 (11:10→20:31)
[2022-08-05] MEDS: Fluticasone Propionate Nasal Spray 16 gm Bottle NASAL SCH (11:11)
[2022-08-05] MEDS ORDERED: Minoxidil 10 MG TAB PO SCH (14:45)
[2022-08-05] MEDS: HumaLOG 300 UNITS/3 ML VIAL SC PRN (17:47)
[2022-08-05] MEDS: Minoxidil 10 MG TAB PO SCH (21:13)
[2022-08-06] MEDS: Labetalol HCl 100 MG TAB PO SCH ×2 (08:22→21:45)
[2022-08-06] MEDS: Ferrous Sulfate 325 MG TAB PO SCH (08:22)
[2022-08-06] MEDS: Losartan 25 MG TAB PO SCH ×2 (08:22→21:45)
[2022-08-06] MEDS: Metolazone 5 MG TAB PO SCH (08:22)
[2022-08-06] MEDS: NIFEdipine XL 60 MG TAB PO SCH ×2 (08:22→21:51)
[2022-08-06] MEDS: Polyethylene Glycol 3350 17 GM Packet PO SCH (08:22)
[2022-08-06] MEDS: Senokot S 8.6-50 MG TAB PO SCH ×2 (08:22→21:45)
[2022-08-06] MEDS: Calcitriol 0.25 MCG CAP PO SCH (08:22)
[2022-08-06] MEDS: Minoxidil 10 MG TAB PO SCH ×2 (08:22→21:52)
[2022-08-06] MEDS: Fluticasone Propionate Nasal Spray 16 gm Bottle NASAL SCH (08:23)
[2022-08-06] MEDS: Torsemide 100 MG TAB PO SCH (13:04)
[2022-08-06] MEDS: Epoetin (ESRD) 10,000 UNITS/ML VIAL SC SCH (14:15)
[2022-08-07] MEDS: NIFEdipine XL 60 MG TAB PO SCH ×2 (08:56→22:33)
[2022-08-07] MEDS: Torsemide 100 MG TAB PO SCH (08:56)
[2022-08-07] MEDS: Senokot S 8.6-50 MG TAB PO SCH ×2 (08:57→22:33)
[2022-08-07] MEDS: Ferrous Sulfate 325 MG TAB PO SCH (08:57)
[2022-08-07] MEDS: Labetalol HCl 100 MG TAB PO SCH ×2 (08:57→22:33)
[2022-08-07] MEDS: Calcitriol 0.25 MCG CAP PO SCH (08:57)
[2022-08-07] MEDS: Metolazone 5 MG TAB PO SCH (08:57)
[2022-08-07] MEDS: Losartan 25 MG TAB PO SCH ×2 (08:57→22:32)
[2022-08-07] MEDS: Minoxidil 10 MG TAB PO SCH ×2 (08:57→22:50)
[2022-08-07] MEDS: Fluticasone Propionate Nasal Spray 16 gm Bottle NASAL SCH (08:58)
[2022-08-07] MEDS: Polyethylene Glycol 3350 17 GM Packet PO SCH (09:01)
[2022-08-07 09:34] LABS: #Eosinphils 0.2 thou/uL (0.0-0.7); #Lymphocytes 1.5 thou/uL (1.20-3.40); #Monocytes 0.4 thou/uL (0.11-0.59); #Monocytes 0.5 thou/uL (0.11-0.59); #Neutrophils 3.8 thou/uL (1.40-6.50); #Neutrophils 4.1 thou/uL (1.40-6.50); %Basophils 0.7 % (0.0-1.0); %Eosinophils 3.1 % (0.0-10.0); %Eosinophils 3.6 % (0.0-10.0); %Lymphocytes 25.6 % (21.0-51.0); %Monocytes 6.8 % (0.0-10.0); %Monocytes 7.1 % (0.0-10.0); %Neutrophils 63.3 % (42.0-75.0); %Neutrophils 65.2 % (42.0-75.0); Hemoglobin 7.2 g/dL (14.0-18.0); Hemoglobin 7.3 g/dL (14.0-18.0); Mean Corpuscular HGB CONC 31.4 g/dL (32.0-36.0); Mean Corpuscular HGB CONC 31.6 g/dL (32.0-36.0); Mean Corpuscular Hemoglobin 31.8 pg (27.0-31.0); Mean Corpuscular Hemoglobin 31.9 pg (27.0-31.0); Mean Platelet Volume 7.9 fL (7.4-10.4); Platelet Count 293 10x3/uL (130-400); Platelet Count 310 10x3/uL (130-400); RBC Distribution Width 14.3 % (11.5-14.5); RBC Distribution Width 14.4 % (11.5-14.5); Red Blood Cell (RBC) Count 2.26 mill/uL (4.70-6.10); Red Blood Cell (RBC) Count 2.28 mill/uL (4.70-6.10); White Blood Cell (WBC) Count 6.4 10x3/uL (4.8-10.8)
[2022-08-07 09:50] LABS: Anion Gap 12 mmol/L (10-20); Anion Gap 13 mmol/L (10-20); BUN (Urea Nitrogen) 26 mg/dL (8.9-20.6); Calc. Creatinine Clearance 20 mL/min (70-130); Calcium 7.9 mg/dL (7.8-10.44); Carbon Dioxide 27 mmol/L (22-29); Carbon Dioxide 29 mmol/L (22-29); Chloride 103 mmol/L (98-107); Estimated GFR 12; Glucose 167 mg/dL (70-105); Potassium 4.2 mmol/L (3.5-5.1); Potassium 4.3 mmol/L (3.5-5.1); Sodium 139 mmol/L (136-145); Sodium 140 mmol/L (136-145)
[2022-08-07 09:51] LABS: Albumin 2.7 g/dL (3.5-5.0); BUN/Creatinine Ratio 4.45; Calcium 8.2 mg/dL (7.8-10.44); Estimated GFR 12; Glucose 165 mg/dL (70-105); Phosphorus 4.7 mg/dL (2.3-4.7)
[2022-08-07] MEDS: HumaLOG 300 UNITS/3 ML VIAL SC PRN (17:52)
[2022-08-08 08:20] LABS: #Eosinphils 0.2 thou/uL (0.0-0.7); #Lymphocytes 1.6 thou/uL (1.20-3.40); #Monocytes 0.4 thou/uL (0.11-0.59); %Basophils 0.5 % (0.0-1.0); %Eosinophils 3.4 % (0.0-10.0); %Lymphocytes 25.3 % (21.0-51.0); %Monocytes 6.5 % (0.0-10.0); %Neutrophils 64.3 % (42.0-75.0); Hemoglobin 7.5 g/dL (14.0-18.0); Mean Corpuscular Hemoglobin 31.3 pg (27.0-31.0); Mean Platelet Volume 8.1 fL (7.4-10.4); Platelet Count 292 10x3/uL (130-400); RBC Distribution Width 14.3 % (11.5-14.5); Red Blood Cell (RBC) Count 2.41 mill/uL (4.70-6.10); White Blood Cell (WBC) Count 6.3 10x3/uL (4.8-10.8)
[2022-08-08] MEDS: Minoxidil 10 MG TAB PO SCH ×2 (08:30→20:28)
[2022-08-08] MEDS: Polyethylene Glycol 3350 17 GM Packet PO SCH ×2 (08:30→20:33)
[2022-08-08] MEDS: Ferrous Sulfate 325 MG TAB PO SCH (08:30)
[2022-08-08] MEDS: Torsemide 100 MG TAB PO SCH ×2 (08:30→20:32)
[2022-08-08] MEDS: Labetalol HCl 100 MG TAB PO SCH ×2 (08:30→20:27)
[2022-08-08] MEDS: Losartan 25 MG TAB PO SCH ×2 (08:30→20:27)
[2022-08-08] MEDS: Calcitriol 0.25 MCG CAP PO SCH (08:30)
[2022-08-08] MEDS: NIFEdipine XL 60 MG TAB PO SCH ×2 (08:30→20:28)
[2022-08-08] MEDS: Metolazone 5 MG TAB PO SCH (08:30)
[2022-08-08] MEDS: Senokot S 8.6-50 MG TAB PO SCH ×2 (08:30→20:29)
[2022-08-08 08:42] LABS: Anion Gap 12 mmol/L (10-20); BUN (Urea Nitrogen) 30 mg/dL (8.9-20.6); Calc. Creatinine Clearance 16 mL/min (70-130); Calcium 7.7 mg/dL (7.8-10.44); Carbon Dioxide 28 mmol/L (22-29); Chloride 101 mmol/L (98-107); Estimated GFR 9; Glucose 169 mg/dL (70-105); Sodium 137 mmol/L (136-145)
[2022-08-08] MEDS: HumaLOG 300 UNITS/3 ML VIAL SC PRN (13:25)
[2022-08-08] MEDS: Epoetin (ESRD) 10,000 UNITS/ML VIAL SC SCH (20:30)
[2022-08-08] MEDS: Ergocalciferol 1.25 MG(50,000 UNITS) CAP PO SCH (20:31)
[2022-08-08] MEDS: Fluticasone Propionate Nasal Spray 16 gm Bottle NASAL SCH (20:32)
[2022-08-08] MEDS: Acetaminophen 325 MG TAB PO PRN (23:43)
[2022-08-09] MEDS: HumaLOG 300 UNITS/3 ML VIAL SC PRN (05:24)
[2022-08-09] MEDS: Labetalol HCl 100 MG TAB PO SCH ×2 (09:03→20:37)
[2022-08-09] MEDS: Calcitriol 0.25 MCG CAP PO SCH (09:03)
[2022-08-09] MEDS: Metolazone 5 MG TAB PO SCH (09:03)
[2022-08-09] MEDS: Ferrous Sulfate 325 MG TAB PO SCH (09:03)
[2022-08-09] MEDS: Senokot S 8.6-50 MG TAB PO SCH ×2 (09:03→20:38)
[2022-08-09] MEDS: NIFEdipine XL 60 MG TAB PO SCH ×2 (09:03→20:38)
[2022-08-09] MEDS: Losartan 25 MG TAB PO SCH ×2 (09:03→20:38)
[2022-08-09] MEDS: Polyethylene Glycol 3350 17 GM Packet PO SCH (09:04)
[2022-08-09] MEDS: Fluticasone Propionate Nasal Spray 16 gm Bottle NASAL SCH (09:04)
[2022-08-09] MEDS: Minoxidil 10 MG TAB PO SCH (09:10)
[2022-08-09] MEDS: Torsemide 100 MG TAB PO SCH (09:11)
[2022-08-09] MEDS: Ondansetron ODT 4 MG TAB PO PRN (15:06)
[2022-08-10] MEDS: HumaLOG 300 UNITS/3 ML VIAL SC PRN ×2 (05:17→20:17)
[2022-08-10 08:24] LABS: #Eosinphils 0.2 thou/uL (0.0-0.7); #Lymphocytes 1.7 thou/uL (1.20-3.40); #Monocytes 0.5 thou/uL (0.11-0.59); #Neutrophils 3.4 thou/uL (1.40-6.50); %Basophils 0.3 % (0.0-1.0); %Eosinophils 3.3 % (0.0-10.0); %Lymphocytes 29.2 % (21.0-51.0); %Monocytes 7.9 % (0.0-10.0); %Neutrophils 59.3 % (42.0-75.0); Hemoglobin 6.8 g/dL (14.0-18.0); Mean Corpuscular HGB CONC 31.5 g/dL (32.0-36.0); Platelet Count 277 10x3/uL (130-400); Red Blood Cell (RBC) Count 2.13 mill/uL (4.70-6.10); White Blood Cell (WBC) Count 5.8 10x3/uL (4.8-10.8)
[2022-08-10] MEDS: Metolazone 5 MG TAB PO SCH (08:35)
[2022-08-10] MEDS: Ferrous Sulfate 325 MG TAB PO SCH (08:35)
[2022-08-10] MEDS: Calcitriol 0.25 MCG CAP PO SCH (08:35)
[2022-08-10] MEDS: Labetalol HCl 100 MG TAB PO SCH ×2 (08:35→20:15)
[2022-08-10] MEDS: Losartan 25 MG TAB PO SCH ×2 (08:36→20:16)
[2022-08-10] MEDS: NIFEdipine XL 60 MG TAB PO SCH ×2 (08:36→20:15)
[2022-08-10] MEDS: Torsemide 100 MG TAB PO SCH (08:36)
[2022-08-10] MEDS: Senokot S 8.6-50 MG TAB PO SCH ×2 (08:36→20:15)
[2022-08-10] MEDS: Epoetin (ESRD) 10,000 UNITS/ML VIAL SC SCH (08:38)
[2022-08-10] MEDS: Fluticasone Propionate Nasal Spray 16 gm Bottle NASAL SCH (08:40)
[2022-08-10] MEDS: Polyethylene Glycol 3350 17 GM Packet PO SCH (08:40)
[2022-08-10 08:47] LABS: Albumin 2.4 g/dL (3.5-5.0); Anion Gap 13 mmol/L (10-20); BUN (Urea Nitrogen) 28 mg/dL (8.9-20.6); Calc. Creatinine Clearance 16 mL/min (70-130); Calcium 7.5 mg/dL (7.8-10.44); Carbon Dioxide 26 mmol/L (22-29); Chloride 101 mmol/L (98-107); Estimated GFR 9; Glucose 114 mg/dL (70-105); Phosphorus 5.6 mg/dL (2.3-4.7); Potassium 4.2 mmol/L (3.5-5.1); Sodium 136 mmol/L (136-145)
[2022-08-10 16:34] LABS: Hemoglobin 8.9 g/dL (14.0-18.0)
[2022-08-11] MEDS: HumaLOG 300 UNITS/3 ML VIAL SC PRN ×2 (06:02→16:45)
[2022-08-11 08:24] LABS: #Eosinphils 0.2 thou/uL (0.0-0.7); #Lymphocytes 1.7 thou/uL (1.20-3.40); #Monocytes 0.6 thou/uL (0.11-0.59); #Neutrophils 2.8 thou/uL (1.40-6.50); %Basophils 0.8 % (0.0-1.0); %Eosinophils 3.3 % (0.0-10.0); %Lymphocytes 31.2 % (21.0-51.0); %Monocytes 11.3 % (0.0-10.0); %Neutrophils 53.5 % (42.0-75.0); Hemoglobin 8.2 g/dL (14.0-18.0); Mean Corpuscular Hemoglobin 32.6 pg (27.0-31.0); Mean Platelet Volume 7.7 fL (7.4-10.4); Platelet Count 279 10x3/uL (130-400); RBC Distribution Width 13.9 % (11.5-14.5); Red Blood Cell (RBC) Count 2.52 mill/uL (4.70-6.10); White Blood Cell (WBC) Count 5.3 10x3/uL (4.8-10.8)
[2022-08-11 08:48] LABS: ALT (SGPT) Less than 7 U/L (8-55); AST (SGOT) 13 U/L (5-34); Albumin 2.5 g/dL (3.5-5.0); Alkaline Phosphatase 82 U/L (40-110); Anion Gap 12 mmol/L (10-20); BUN (Urea Nitrogen) 26 mg/dL (8.9-20.6); Bilirubin, Total 0.3 mg/dL (0.2-1.2); Calc. Creatinine Clearance 20 mL/min (70-130); Calcium 7.6 mg/dL (7.8-10.44); Carbon Dioxide 28 mmol/L (22-29); Chloride 102 mmol/L (98-107); Estimated GFR 12; Globulin 2.7 g/dL (2.4-3.5); Glucose 82 mg/dL (70-105); Potassium 4.1 mmol/L (3.5-5.1); Protein, Total 5.2 g/dL (6.0-8.3); Sodium 138 mmol/L (136-145)
[2022-08-11] MEDS: Calcitriol 0.25 MCG CAP PO SCH (08:58)
[2022-08-11] MEDS: Losartan 25 MG TAB PO SCH ×2 (08:58→20:25)
[2022-08-11] MEDS: NIFEdipine XL 60 MG TAB PO SCH ×2 (08:58→20:25)
[2022-08-11] MEDS: Metolazone 5 MG TAB PO SCH (08:58)
[2022-08-11] MEDS: Labetalol HCl 100 MG TAB PO SCH ×2 (08:58→20:25)
[2022-08-11] MEDS: Torsemide 100 MG TAB PO SCH (08:58)
[2022-08-11] MEDS: Fluticasone Propionate Nasal Spray 16 gm Bottle NASAL SCH (08:59)
[2022-08-11] MEDS: Ferrous Sulfate 325 MG TAB PO SCH (08:59)
[2022-08-11] MEDS: Polyethylene Glycol 3350 17 GM Packet PO SCH (08:59)
[2022-08-11] MEDS: Senokot S 8.6-50 MG TAB PO SCH ×2 (08:59→20:26)
[2022-08-11] MEDS ORDERED: hydrALAZINE 25 MG TAB PO SCH (14:02)
[2022-08-11 17:53] LABS: Hemoglobin 8.6 g/dL (14.0-18.0)
[2022-08-11] MEDS: Ondansetron ODT 4 MG TAB PO PRN (20:24)
[2022-08-11] MEDS: Minoxidil 2.5 MG TAB PO SCH (20:26)
[2022-08-12 07:14] LABS: #Eosinphils 0.2 thou/uL (0.0-0.7); #Lymphocytes 1.9 thou/uL (1.20-3.40); #Monocytes 0.5 thou/uL (0.11-0.59); #Neutrophils 3.5 thou/uL (1.40-6.50); %Basophils 0.7 % (0.0-1.0); %Eosinophils 3.9 % (0.0-10.0); %Monocytes 8.1 % (0.0-10.0); %Neutrophils 56.3 % (42.0-75.0); Hemoglobin 8.6 g/dL (14.0-18.0); Mean Corpuscular HGB CONC 32.6 g/dL (32.0-36.0); Mean Corpuscular Hemoglobin 33.1 pg (27.0-31.0); Mean Platelet Volume 7.9 fL (7.4-10.4); Platelet Count 313 10x3/uL (130-400); RBC Distribution Width 13.9 % (11.5-14.5); White Blood Cell (WBC) Count 6.2 10x3/uL (4.8-10.8)
[2022-08-12 07:36] LABS: ALT (SGPT) 7 U/L (8-55); AST (SGOT) 14 U/L (5-34); Albumin 2.6 g/dL (3.5-5.0); Alkaline Phosphatase 83 U/L (40-110); Anion Gap 15 mmol/L (10-20); BUN (Urea Nitrogen) 40 mg/dL (8.9-20.6); Bilirubin, Total 0.3 mg/dL (0.2-1.2); Calc. Creatinine Clearance 17 mL/min (70-130); Calcium 7.6 mg/dL (7.8-10.44); Carbon Dioxide 26 mmol/L (22-29); Chloride 101 mmol/L (98-107); Estimated GFR 9; Globulin 2.6 g/dL (2.4-3.5); Glucose 147 mg/dL (70-105); Potassium 4.1 mmol/L (3.5-5.1); Protein, Total 5.2 g/dL (6.0-8.3); Sodium 138 mmol/L (136-145)
[2022-08-12] MEDS: Fluticasone Propionate Nasal Spray 16 gm Bottle NASAL SCH (08:34)
[2022-08-12] MEDS: Metolazone 5 MG TAB PO SCH (08:35)
[2022-08-12] MEDS: NIFEdipine XL 60 MG TAB PO SCH ×2 (08:35→20:37)
[2022-08-12] MEDS: Labetalol HCl 100 MG TAB PO SCH ×2 (08:35→20:37)
[2022-08-12] MEDS: Losartan 25 MG TAB PO SCH ×2 (08:36→20:38)
[2022-08-12] MEDS: Senokot S 8.6-50 MG TAB PO SCH ×2 (08:36→20:38)
[2022-08-12] MEDS: Calcitriol 0.25 MCG CAP PO SCH (08:36)
[2022-08-12] MEDS: Polyethylene Glycol 3350 17 GM Packet PO SCH (08:36)
[2022-08-12] MEDS: Ferrous Sulfate 325 MG TAB PO SCH (08:36)
[2022-08-12] MEDS: Minoxidil 2.5 MG TAB PO SCH ×2 (08:36→20:38)
[2022-08-12] MEDS: Torsemide 100 MG TAB PO SCH (08:38)
[2022-08-12] MEDS: HumaLOG 300 UNITS/3 ML VIAL SC PRN (12:40)
[2022-08-13] MEDS: HumaLOG 300 UNITS/3 ML VIAL SC PRN ×2 (05:14→21:12)
[2022-08-13 06:35] LABS: #Eosinphils 0.2 thou/uL (0.0-0.7); #Lymphocytes 1.7 thou/uL (1.20-3.40); #Monocytes 0.4 thou/uL (0.11-0.59); %Basophils 0.4 % (0.0-1.0); %Monocytes 7.9 % (0.0-10.0); %Neutrophils 55.7 % (42.0-75.0); Hemoglobin 8.8 g/dL (14.0-18.0); Mean Corpuscular HGB CONC 32.6 g/dL (32.0-36.0); Mean Corpuscular Hemoglobin 32.6 pg (27.0-31.0); Mean Platelet Volume 8.3 fL (7.4-10.4); Platelet Count 300 10x3/uL (130-400); RBC Distribution Width 13.9 % (11.5-14.5); Red Blood Cell (RBC) Count 2.69 mill/uL (4.70-6.10); White Blood Cell (WBC) Count 5.5 10x3/uL (4.8-10.8)
[2022-08-13 06:57] LABS: ALT (SGPT) 8 U/L (8-55); AST (SGOT) 12 U/L (5-34); Albumin 2.6 g/dL (3.5-5.0); Alkaline Phosphatase 90 U/L (40-110); Anion Gap 15 mmol/L (10-20); BUN (Urea Nitrogen) 47 mg/dL (8.9-20.6); Bilirubin, Total 0.3 mg/dL (0.2-1.2); Calc. Creatinine Clearance 15 mL/min (70-130); Calcium 7.8 mg/dL (7.8-10.44); Carbon Dioxide 27 mmol/L (22-29); Chloride 100 mmol/L (98-107); Estimated GFR 8; Globulin 2.7 g/dL (2.4-3.5); Glucose 181 mg/dL (70-105); Potassium 3.9 mmol/L (3.5-5.1); Protein, Total 5.3 g/dL (6.0-8.3); Sodium 138 mmol/L (136-145)
[2022-08-13] MEDS: Polyethylene Glycol 3350 17 GM Packet PO SCH ×2 (08:48→14:51)
[2022-08-13] MEDS: Metolazone 5 MG TAB PO SCH (08:48)
[2022-08-13] MEDS: Losartan 25 MG TAB PO SCH ×2 (08:48→21:11)
[2022-08-13] MEDS: NIFEdipine XL 60 MG TAB PO SCH ×2 (08:48→21:10)
[2022-08-13] MEDS: Senokot S 8.6-50 MG TAB PO SCH ×3 (08:48→21:11)
[2022-08-13] MEDS: Calcitriol 0.25 MCG CAP PO SCH (08:48)
[2022-08-13] MEDS: Ferrous Sulfate 325 MG TAB PO SCH (08:49)
[2022-08-13] MEDS: Fluticasone Propionate Nasal Spray 16 gm Bottle NASAL SCH (08:49)
[2022-08-13] MEDS: Labetalol HCl 100 MG TAB PO SCH ×2 (08:49→21:11)
[2022-08-13] MEDS: Minoxidil 2.5 MG TAB PO SCH ×2 (14:46→21:11)
[2022-08-13] MEDS: Torsemide 100 MG TAB PO SCH (14:47)
[2022-08-13] MEDS ORDERED: EPOETIN ALFA-EPBX (ESRD) 10,000 UNIT/ML VIAL SC SCH (15:00)
[2022-08-13] MEDS: Epoetin (ESRD) 10,000 UNITS/ML VIAL SC SCH (17:03)
[2022-08-14 07:30] LABS: #Eosinphils 0.2 thou/uL (0.0-0.7); #Lymphocytes 1.7 thou/uL (1.20-3.40); #Monocytes 0.5 thou/uL (0.11-0.59); #Neutrophils 3.2 thou/uL (1.40-6.50); %Basophils 0.1 % (0.0-1.0); %Lymphocytes 30.4 % (21.0-51.0); %Monocytes 8.2 % (0.0-10.0); %Neutrophils 58.2 % (42.0-75.0); Hemoglobin 8.7 g/dL (14.0-18.0); Mean Corpuscular HGB CONC 31.6 g/dL (32.0-36.0); Mean Corpuscular Hemoglobin 32.2 pg (27.0-31.0); Mean Platelet Volume 8.1 fL (7.4-10.4); Platelet Count 291 10x3/uL (130-400); RBC Distribution Width 14.2 % (11.5-14.5); White Blood Cell (WBC) Count 5.6 10x3/uL (4.8-10.8)
[2022-08-14 07:53] LABS: Anion Gap 13 mmol/L (10-20); BUN (Urea Nitrogen) 41 mg/dL (8.9-20.6); Calc. Creatinine Clearance 17 mL/min (70-130); Calcium 7.9 mg/dL (7.8-10.44); Carbon Dioxide 27 mmol/L (22-29); Chloride 103 mmol/L (98-107); Estimated GFR 10; Glucose 156 mg/dL (70-105); Potassium 4.2 mmol/L (3.5-5.1); Sodium 139 mmol/L (136-145)
[2022-08-14] MEDS: Metolazone 5 MG TAB PO SCH (08:48)
[2022-08-14] MEDS: Ferrous Sulfate 325 MG TAB PO SCH (08:48)
[2022-08-14] MEDS: Labetalol HCl 100 MG TAB PO SCH ×2 (08:48→20:44)
[2022-08-14] MEDS: Minoxidil 2.5 MG TAB PO SCH ×2 (08:48→20:46)
[2022-08-14] MEDS: Calcitriol 0.25 MCG CAP PO SCH (08:48)
[2022-08-14] MEDS: NIFEdipine XL 60 MG TAB PO SCH ×2 (08:48→20:45)
[2022-08-14] MEDS: Losartan 25 MG TAB PO SCH ×2 (08:48→20:45)
[2022-08-14] MEDS: Senokot S 8.6-50 MG TAB PO SCH ×2 (08:49→20:46)
[2022-08-14] MEDS: Polyethylene Glycol 3350 17 GM Packet PO SCH (08:49)
[2022-08-14] MEDS: Torsemide 100 MG TAB PO SCH (08:49)
[2022-08-14] MEDS: Fluticasone Propionate Nasal Spray 16 gm Bottle NASAL SCH (08:49)
[2022-08-14] MEDS: HumaLOG 300 UNITS/3 ML VIAL SC PRN (20:47)
[2022-08-15 07:44] LABS: #Eosinphils 0.2 thou/uL (0.0-0.7); #Lymphocytes 1.8 thou/uL (1.20-3.40); #Monocytes 0.5 thou/uL (0.11-0.59); #Neutrophils 3.2 thou/uL (1.40-6.50); %Basophils 0.4 % (0.0-1.0); %Eosinophils 2.9 % (0.0-10.0); %Lymphocytes 32.2 % (21.0-51.0); %Monocytes 7.9 % (0.0-10.0); %Neutrophils 56.6 % (42.0-75.0); Hemoglobin 8.7 g/dL (14.0-18.0); Mean Corpuscular HGB CONC 31.2 g/dL (32.0-36.0); Mean Corpuscular Hemoglobin 32.2 pg (27.0-31.0); Mean Platelet Volume 8.1 fL (7.4-10.4); Platelet Count 312 10x3/uL (130-400); RBC Distribution Width 14.1 % (11.5-14.5); Red Blood Cell (RBC) Count 2.71 mill/uL (4.70-6.10); White Blood Cell (WBC) Count 5.7 10x3/uL (4.8-10.8)
[2022-08-15 07:58] LABS: Anion Gap 16 mmol/L (10-20); BUN (Urea Nitrogen) 46 mg/dL (8.9-20.6); Calc. Creatinine Clearance 15 mL/min (70-130); Calcium 7.8 mg/dL (7.8-10.44); Carbon Dioxide 24 mmol/L (22-29); Chloride 104 mmol/L (98-107); Estimated GFR 8; Glucose 143 mg/dL (70-105); Sodium 140 mmol/L (136-145)
[2022-08-15] MEDS: Metolazone 5 MG TAB PO SCH (09:19)
[2022-08-15] MEDS: Ergocalciferol 1.25 MG(50,000 UNITS) CAP PO SCH (09:19)
[2022-08-15] MEDS: Calcitriol 0.25 MCG CAP PO SCH (09:19)
[2022-08-15] MEDS: Labetalol HCl 100 MG TAB PO SCH ×2 (09:19→21:30)
[2022-08-15] MEDS: Ferrous Sulfate 325 MG TAB PO SCH (09:19)
[2022-08-15] MEDS: Fluticasone Propionate Nasal Spray 16 gm Bottle NASAL SCH (09:19)
[2022-08-15] MEDS: Losartan 25 MG TAB PO SCH ×2 (09:22→21:31)
[2022-08-15] MEDS: Polyethylene Glycol 3350 17 GM Packet PO SCH (09:23)
[2022-08-15] MEDS: Torsemide 100 MG TAB PO SCH (09:23)
[2022-08-15] MEDS: EPOETIN ALFA-EPBX (ESRD) 10,000 UNIT/ML VIAL SC SCH (09:23)
[2022-08-15] MEDS: NIFEdipine XL 60 MG TAB PO SCH ×2 (09:23→21:31)
[2022-08-15] MEDS: Senokot S 8.6-50 MG TAB PO SCH ×2 (09:23→21:32)
[2022-08-15] MEDS: Minoxidil 2.5 MG TAB PO SCH ×2 (09:23→21:32)
[2022-08-15] MEDS: HumaLOG 300 UNITS/3 ML VIAL SC PRN ×2 (17:36→22:45)
[2022-08-16 07:01] LABS: #Basophils 0.1 thou/uL (0.0-0.2); #Eosinphils 0.2 thou/uL (0.0-0.7); #Lymphocytes 1.8 thou/uL (1.20-3.40); #Monocytes 0.5 thou/uL (0.11-0.59); #Neutrophils 3.5 thou/uL (1.40-6.50); %Basophils 1.1 % (0.0-1.0); %Eosinophils 2.5 % (0.0-10.0); %Lymphocytes 29.9 % (21.0-51.0); %Neutrophils 58.4 % (42.0-75.0); Hemoglobin 8.8 g/dL (14.0-18.0); Mean Corpuscular HGB CONC 31.4 g/dL (32.0-36.0); Mean Corpuscular Hemoglobin 32.3 pg (27.0-31.0); Mean Platelet Volume 8.2 fL (7.4-10.4); Platelet Count 286 10x3/uL (130-400); RBC Distribution Width 14.2 % (11.5-14.5); Red Blood Cell (RBC) Count 2.73 mill/uL (4.70-6.10)
[2022-08-16 07:28] LABS: Anion Gap 14 mmol/L (10-20); BUN (Urea Nitrogen) 30 mg/dL (8.9-20.6); Calc. Creatinine Clearance 22 mL/min (70-130); Calcium 8.1 mg/dL (7.8-10.44); Carbon Dioxide 26 mmol/L (22-29); Chloride 105 mmol/L (98-107); Estimated GFR 13; Glucose 138 mg/dL (70-105); Potassium 4.1 mmol/L (3.5-5.1); Sodium 141 mmol/L (136-145)
[2022-08-16] MEDS: Minoxidil 2.5 MG TAB PO SCH ×2 (09:05→21:33)
[2022-08-16] MEDS: Polyethylene Glycol 3350 17 GM Packet PO SCH (09:05)
[2022-08-16] MEDS: NIFEdipine XL 60 MG TAB PO SCH ×2 (09:05→21:32)
[2022-08-16] MEDS: Labetalol HCl 100 MG TAB PO SCH ×2 (09:06→21:32)
[2022-08-16] MEDS: Ferrous Sulfate 325 MG TAB PO SCH (09:06)
[2022-08-16] MEDS: Metolazone 5 MG TAB PO SCH (09:06)
[2022-08-16] MEDS: Torsemide 100 MG TAB PO SCH (09:06)
[2022-08-16] MEDS: Losartan 25 MG TAB PO SCH ×2 (09:07→21:33)
[2022-08-16] MEDS: Senokot S 8.6-50 MG TAB PO SCH ×2 (09:07→21:33)
[2022-08-16] MEDS: Calcitriol 0.25 MCG CAP PO SCH (09:07)
[2022-08-16] MEDS: Fluticasone Propionate Nasal Spray 16 gm Bottle NASAL SCH (09:08)
[2022-08-16] MEDS: HumaLOG 300 UNITS/3 ML VIAL SC PRN (12:04)
[2022-08-17] MEDS: HumaLOG 300 UNITS/3 ML VIAL SC PRN (06:02)
[2022-08-17 06:55] LABS: #Eosinphils 0.1 thou/uL (0.0-0.7); #Lymphocytes 1.8 thou/uL (1.20-3.40); #Monocytes 0.4 thou/uL (0.11-0.59); #Neutrophils 2.7 thou/uL (1.40-6.50); %Basophils 0.7 % (0.0-1.0); %Eosinophils 2.8 % (0.0-10.0); %Lymphocytes 35.2 % (21.0-51.0); %Monocytes 7.3 % (0.0-10.0); %Neutrophils 54.1 % (42.0-75.0); Hemoglobin 9.2 g/dL (14.0-18.0); Mean Corpuscular HGB CONC 31.8 g/dL (32.0-36.0); Mean Corpuscular Hemoglobin 32.5 pg (27.0-31.0); Mean Platelet Volume 8.1 fL (7.4-10.4); Platelet Count 291 10x3/uL (130-400); RBC Distribution Width 14.3 % (11.5-14.5); Red Blood Cell (RBC) Count 2.82 mill/uL (4.70-6.10)
[2022-08-17 07:22] LABS: Anion Gap 14 mmol/L (10-20); BUN (Urea Nitrogen) 40 mg/dL (8.9-20.6); Calc. Creatinine Clearance 17 mL/min (70-130); Calcium 8.1 mg/dL (7.8-10.44); Carbon Dioxide 25 mmol/L (22-29); Chloride 103 mmol/L (98-107); Estimated GFR 10; Glucose 159 mg/dL (70-105); Potassium 4.2 mmol/L (3.5-5.1); Sodium 138 mmol/L (136-145)
[2022-08-17] MEDS: Polyethylene Glycol 3350 17 GM Packet PO SCH (07:56)
[2022-08-17] MEDS: Labetalol HCl 100 MG TAB PO SCH (07:56)
[2022-08-17] MEDS: Metolazone 5 MG TAB PO SCH (07:56)
[2022-08-17] MEDS: NIFEdipine XL 60 MG TAB PO SCH (07:56)
[2022-08-17] MEDS: Fluticasone Propionate Nasal Spray 16 gm Bottle NASAL SCH (07:56)
[2022-08-17] MEDS: Ferrous Sulfate 325 MG TAB PO SCH (07:57)
[2022-08-17] MEDS: Losartan 25 MG TAB PO SCH (07:57)
[2022-08-17] MEDS: Calcitriol 0.25 MCG CAP PO SCH (07:57)
[2022-08-17] MEDS: Senokot S 8.6-50 MG TAB PO SCH (07:57)
[2022-08-17] MEDS: Minoxidil 2.5 MG TAB PO SCH (08:07)
[2022-08-17] MEDS: Torsemide 100 MG TAB PO SCH (08:30)
[2022-08-17] MEDS: EPOETIN ALFA-EPBX (ESRD) 10,000 UNIT/ML VIAL SC SCH (14:42)
[2022-08-17 16:34] VITALS: BP 154/73; TEMP 98.5
== END 2022-08-17 17:38 | disposition home or self-care (01) | DRG 682 ==
LOC: ERS 12:40 → ERHOLD 16:57 → T4-A 21:08
PROVIDERS: ADMIT Family Medicine; ATTEND Hospitalist
PROC: 5A1D70Z Performance of Urinary Filtration, Intermittent, Less than 6 Hours Per Day (ICD-10-PCS; 2022-08-01)
PROC: 30233N1 Transfusion of Nonautologous Red Blood Cells into Peripheral Vein, Percutaneous Approach (ICD-10-PCS; principal; 2022-08-10)
DX: N17.9 Acute kidney failure, unspecified (principal); I50.33 Acute on chronic diastolic (congestive) heart failure; E87.20 Acidosis, unspecified; I16.1 Hypertensive emergency; E11.22 Type 2 diabetes mellitus with diabetic chronic kidney disease; N18.6 End stage renal disease; N25.81 Secondary hyperparathyroidism of renal origin; D63.1 Anemia in chronic kidney disease; K59.00 Constipation, unspecified; E83.51 Hypocalcemia; I16.0 Hypertensive urgency; Z79.4 Long term (current) use of insulin; Z79.899 Other long term (current) drug therapy; Z98.890 Other specified postprocedural states; Z20.822 Contact with and (suspected) exposure to COVID-19; Z89.421 Acquired absence of other right toe(s); K42.9 Umbilical hernia without obstruction or gangrene; I11.0 Hypertensive heart disease with heart failure
CPT/HCPCS: 36415; 36416; 36430; 71045; 71046; 74176; 76770; 80048; 80053; 80069; 81001; 82306; 82607; 82728; 83036; 83540; 83550; 83690; 83880; 83970; 85025; 86704; 86850; 86900; 86901; 87811; 90935; 93975; 99284; A4217; G0257; J0360; J1815; J1940; J2405; J2765; J2916; J7050; P9016; Q0162; Q4081; Q5105; U0003; U0005

== ENCOUNTER 2023-08-08 23:42 | Inpatient (IN) | payer BC, MEDICARE, OTHER ==
[2023-08-09 01:16] LABS: #Basophils 0.1 thou/uL (0.0-0.2); #Eosinphils 0.1 thou/uL (0.0-0.7); #Monocytes 0.5 thou/uL (0.11-0.59); %Basophils 0.9 % (0.0-1.0); %Eosinophils 1.5 % (0.0-10.0); %Lymphocytes 20.8 % (21.0-51.0); %Monocytes 5.3 % (0.0-10.0); %Neutrophils 71.3 % (42.0-75.0); Hematocrit 27.1 % (42.0-52.0); Hemoglobin 8.6 g/dL (14.0-18.0); Mean Corpuscular HGB CONC 31.7 g/dL (32.0-36.0); Mean Corpuscular Hemoglobin 31.3 pg (27.0-31.0); Mean Corpuscular Volume 98.5 fl (78.0-98.0); Mean Platelet Volume 11.2 fL (7.4-10.4); Platelet Count 242 10x3/uL (130-400); Red Blood Cell (RBC) Count 2.75 mill/uL (4.70-6.10); White Blood Cell (WBC) Count 8.5 10x3/uL (4.8-10.8)
[2023-08-09 01:43] LABS: ALT (SGPT) 8 U/L (8-55); AST (SGOT) 17 U/L (5-34); Albumin 3.9 g/dL (3.5-5.0); Alkaline Phosphatase 89 U/L (40-110); Anion Gap 19 mmol/L (10-20); BUN (Urea Nitrogen) 36 mg/dL (8.9-20.6); Bilirubin, Total 0.4 mg/dL (0.2-1.2); Calc. Creatinine Clearance 0 mL/min (70-130); Calcium 8.7 mg/dL (7.8-10.44); Carbon Dioxide 28 mmol/L (22-29); Chloride 95 mmol/L (98-107); Estimated GFR 8; Globulin 3.1 g/dL (2.4-3.5); Glucose 167 mg/dL (70-105); Potassium 4.6 mmol/L (3.5-5.1); Sodium 137 mmol/L (136-145)
[2023-08-09] MEDS ORDERED: Nitroglycerin 0.4 MG TAB (25 Tab Bottle) ONE (01:46)
[2023-08-09 02:26] LABS: SARS-CoV-2 NAA Rapid Test Not Detected (NotDetected)
[2023-08-09] MEDS ORDERED: hydrALAZINE 20 MG/ML VIAL ONE (02:46)
[2023-08-09] MEDS ORDERED: Furosemide 100 MG (10 mL) VIAL ONE (02:46)
[2023-08-09] MEDS ORDERED: Acetaminophen 325 MG TAB PO PRN (02:53)
[2023-08-09] MEDS ORDERED: Ondansetron ODT 4 MG TAB PO PRN (02:53)
[2023-08-09] MEDS ORDERED: Dextrose 50% Abboject 50 ML SYRINGE SLOW IVP PRN (02:55)
[2023-08-09] MEDS ORDERED: Glucagon 1 MG/ML KIT IM PRN (02:55)
[2023-08-09] MEDS ORDERED: Dextrose 5% in Water 1,000 ML IV PRN (02:55)
[2023-08-09] MEDS ORDERED: Aspirin Chewable 81 MG TAB ONE (03:00)
[2023-08-09] MEDS ORDERED: niCARdipine 25 MG/10 ML SDV ONE (03:27)
[2023-08-09 03:56] LABS: Hemoglobin A1c 6.2 % (4.0-6.0)
[2023-08-09 04:10] LABS: Troponin I 0.134 ng/mL (< 0.028)
[2023-08-09] MEDS ORDERED: Bumetanide 1 MG TAB PO SCH (09:00)
[2023-08-09] MEDS: Famotidine 20 MG TAB PO SCH (09:54)
[2023-08-09] MEDS: HumaLOG 300 UNITS/3 ML VIAL SC PRN (11:15)
[2023-08-09] MEDS: niCARdipine 25 MG in Sodium Chloride 0.9% 250 ML 250 ML IVPB SCH ×4 (12:36→17:55)
[2023-08-09 13:12] LABS: HBSAg Index 0.19 S/CO (0-0.99); Hep B Core Total Ab Non-Reactive (NonReactive); Hep B Core Total Index 0.08 S/CO (0-0.79); Hep B Surf Ag Non-Reactive S/CO (NonReactive); Hep C IgG Ab Non-Reactive S/CO (NonReactive); Hep C Index 0.03 S/CO (0-0.79)
[2023-08-09 13:15] LABS: HBSAB Concentration 100.78 mIU/mL; Hep B Surf AB Reactive (NonReactive)
[2023-08-09] MEDS ORDERED: niCARdipine 50 MG, Admixture Fee 1 EACH in Sodium Chloride 0.9% 250 ML 230 ML IV SCH (18:30)
[2023-08-09] MEDS: NIFEdipine XL 60 MG ER.TAB PO SCH (20:32)
[2023-08-10] MEDS: NIFEdipine XL 60 MG ER.TAB PO SCH ×2 (08:02→20:32)
[2023-08-10] MEDS: Carvedilol 6.25 MG TAB PO SCH ×2 (08:05→17:27)
[2023-08-10] MEDS ORDERED: FLU VACC QS2023-24(6MOS UP)/PF 60 MCG/0.5 ML SYRINGE IM ONE (09:00)
[2023-08-10] MEDS ORDERED: hydrALAZINE 25 MG TAB PO PRN (10:02)
[2023-08-10] MEDS: Labetalol HCl 100 MG/20 ML VIAL SLOW IVP PRN ×2 (10:08→20:32)
[2023-08-10] MEDS: Famotidine 20 MG TAB PO SCH (17:29)
[2023-08-11] MEDS: Labetalol HCl 100 MG/20 ML VIAL SLOW IVP PRN ×3 (06:18→17:20)
[2023-08-11] MEDS: NIFEdipine XL 60 MG ER.TAB PO SCH ×2 (07:38→20:20)
[2023-08-11] MEDS: hydrALAZINE 20 MG/ML VIAL ONE ×2 (07:38→09:18)
[2023-08-11] MEDS: Famotidine 20 MG TAB PO SCH (07:38)
[2023-08-11] MEDS: Carvedilol 6.25 MG TAB PO SCH (07:38)
[2023-08-11] MEDS ORDERED: hydrALAZINE 20 MG/ML VIAL SLOW IVP SCH (08:15)
[2023-08-11] MEDS ORDERED: Carvedilol 6.25 MG TAB PO SCH (09:45)
[2023-08-11] MEDS ORDERED: hydrALAZINE 25 MG TAB PO SCH (09:45)
[2023-08-11] MEDS ORDERED: cloNIDine 0.1 MG TAB PO SCH (12:15)
[2023-08-11] MEDS: HumaLOG 300 UNITS/3 ML VIAL SC PRN (12:31)
[2023-08-11 12:44] LABS: ALT (SGPT) 7 U/L (8-55); AST (SGOT) 16 U/L (5-34); Albumin 3.7 g/dL (3.5-5.0); Alkaline Phosphatase 86 U/L (40-110); Anion Gap 16 mmol/L (10-20); BUN (Urea Nitrogen) 21 mg/dL (8.9-20.6); Bilirubin, Total 0.4 mg/dL (0.2-1.2); Calc. Creatinine Clearance 14 mL/min (70-130); Calcium 8.7 mg/dL (7.8-10.44); Carbon Dioxide 27 mmol/L (22-29); Chloride 99 mmol/L (98-107); Estimated GFR 11; Globulin 3.1 g/dL (2.4-3.5); Glucose 178 mg/dL (70-105); Protein, Total 6.8 g/dL (6.0-8.3); Sodium 138 mmol/L (136-145)
[2023-08-11] MEDS: hydrALAZINE 25 MG TAB PO SCH ×2 (15:38→20:20)
[2023-08-11 17:51] LABS: #Eosinphils 0.2 thou/uL (0.0-0.7); #Monocytes 0.5 thou/uL (0.11-0.59); #Neutrophils 2.7 thou/uL (1.40-6.50); %Basophils 0.8 % (0.0-1.0); %Eosinophils 3.4 % (0.0-10.0); %Monocytes 9.8 % (0.0-10.0); %Neutrophils 51.8 % (42.0-75.0); Hematocrit 27.2 % (42.0-52.0); Hemoglobin 8.7 g/dL (14.0-18.0); Mean Corpuscular Hemoglobin 31.2 pg (27.0-31.0); Mean Corpuscular Volume 97.5 fl (78.0-98.0); Mean Platelet Volume 10.8 fL (7.4-10.4); Platelet Count 263 10x3/uL (130-400); RBC Distribution Width 13.1 % (11.5-14.5); Red Blood Cell (RBC) Count 2.79 mill/uL (4.70-6.10); White Blood Cell (WBC) Count 5.3 10x3/uL (4.8-10.8)
[2023-08-11] MEDS: hydrALAZINE 20 MG/ML VIAL SLOW IVP PRN (18:19)
[2023-08-11] MEDS: cloNIDine 0.1 MG TAB PO SCH (20:20)
[2023-08-12] MEDS: hydrALAZINE 20 MG/ML VIAL SLOW IVP PRN ×3 (04:32→21:44)
[2023-08-12] MEDS: cloNIDine 0.1 MG TAB PO SCH (08:14)
[2023-08-12] MEDS: Famotidine 20 MG TAB PO SCH (08:14)
[2023-08-12] MEDS: hydrALAZINE 25 MG TAB PO SCH ×3 (08:14→19:53)
[2023-08-12] MEDS: NIFEdipine XL 60 MG ER.TAB PO SCH ×2 (08:15→19:53)
[2023-08-12 11:33] LABS: #Basophils 0.1 thou/uL (0.0-0.2); #Eosinphils 0.2 thou/uL (0.0-0.7); #Monocytes 0.4 thou/uL (0.11-0.59); #Neutrophils 3.3 thou/uL (1.40-6.50); %Basophils 0.9 % (0.0-1.0); %Eosinophils 3.2 % (0.0-10.0); %Lymphocytes 25.7 % (21.0-51.0); %Monocytes 7.8 % (0.0-10.0); Hemoglobin 9.3 g/dL (14.0-18.0); Mean Corpuscular HGB CONC 32.1 g/dL (32.0-36.0); Mean Corpuscular Hemoglobin 31.5 pg (27.0-31.0); Mean Corpuscular Volume 98.3 fl (78.0-98.0); Mean Platelet Volume 11.2 fL (7.4-10.4); Platelet Count 305 10x3/uL (130-400); RBC Distribution Width 13.3 % (11.5-14.5); Red Blood Cell (RBC) Count 2.95 mill/uL (4.70-6.10); White Blood Cell (WBC) Count 5.4 10x3/uL (4.8-10.8)
[2023-08-12 11:57] LABS: Anion Gap 13 mmol/L (10-20); BUN (Urea Nitrogen) 41 mg/dL (8.9-20.6); Calc. Creatinine Clearance 11 mL/min (70-130); Calcium 8.7 mg/dL (7.8-10.44); Carbon Dioxide 28 mmol/L (22-29); Chloride 102 mmol/L (98-107); Estimated GFR 8; Glucose 209 mg/dL (70-105); Potassium 4.6 mmol/L (3.5-5.1); Sodium 138 mmol/L (136-145)
[2023-08-12] MEDS ORDERED: Labetalol HCl 100 MG TAB PO SCH ×3 (14:15→21:00)
[2023-08-12] MEDS: Labetalol HCl 100 MG/20 ML VIAL SLOW IVP PRN (16:41)
[2023-08-12] MEDS: HumaLOG 300 UNITS/3 ML VIAL SC PRN (20:37)
[2023-08-13 04:22] LABS: #Basophils 0.1 thou/uL (0.0-0.2); #Eosinphils 0.2 thou/uL (0.0-0.7); #Monocytes 0.5 thou/uL (0.11-0.59); #Neutrophils 2.8 thou/uL (1.40-6.50); %Basophils 0.9 % (0.0-1.0); %Eosinophils 4.1 % (0.0-10.0); %Lymphocytes 35.8 % (21.0-51.0); %Monocytes 9.4 % (0.0-10.0); %Neutrophils 49.4 % (42.0-75.0); Hematocrit 27.8 % (42.0-52.0); Hemoglobin 8.7 g/dL (14.0-18.0); Mean Corpuscular HGB CONC 31.3 g/dL (32.0-36.0); Mean Corpuscular Hemoglobin 30.7 pg (27.0-31.0); Mean Corpuscular Volume 98.2 fl (78.0-98.0); Platelet Count 297 10x3/uL (130-400); RBC Distribution Width 13.7 % (11.5-14.5); Red Blood Cell (RBC) Count 2.83 mill/uL (4.70-6.10); White Blood Cell (WBC) Count 5.6 10x3/uL (4.8-10.8)
[2023-08-13 04:57] LABS: Anion Gap 18 mmol/L (10-20); BUN (Urea Nitrogen) 55 mg/dL (8.9-20.6); Calc. Creatinine Clearance 10 mL/min (70-130); Calcium 8.4 mg/dL (7.8-10.44); Carbon Dioxide 23 mmol/L (22-29); Chloride 103 mmol/L (98-107); Estimated GFR 7; Glucose 123 mg/dL (70-105); Potassium 4.4 mmol/L (3.5-5.1); Sodium 140 mmol/L (136-145)
[2023-08-13] MEDS: NIFEdipine XL 60 MG ER.TAB PO SCH ×2 (08:14→19:50)
[2023-08-13] MEDS: Famotidine 20 MG TAB PO SCH (08:14)
[2023-08-13] MEDS: Labetalol HCl 100 MG TAB PO SCH ×2 (08:17→19:50)
[2023-08-13] MEDS: hydrALAZINE 25 MG TAB PO SCH ×3 (08:18→19:52)
[2023-08-13] MEDS ORDERED: Furosemide 40 MG TAB PO SCH (15:15)
[2023-08-13] MEDS: hydrALAZINE 20 MG/ML VIAL SLOW IVP PRN (18:23)
[2023-08-13] MEDS ORDERED: Polyethylene Glycol 3350 17 GM Packet PO SCH (18:30)
[2023-08-13] MEDS: HumaLOG 300 UNITS/3 ML VIAL SC PRN (19:54)
[2023-08-14 04:44] LABS: #Eosinphils 0.2 thou/uL (0.0-0.7); #Monocytes 0.5 thou/uL (0.11-0.59); #Neutrophils 2.9 thou/uL (1.40-6.50); %Basophils 0.7 % (0.0-1.0); %Eosinophils 3.9 % (0.0-10.0); %Monocytes 8.4 % (0.0-10.0); %Neutrophils 53.6 % (42.0-75.0); Hematocrit 28.4 % (42.0-52.0); Mean Corpuscular HGB CONC 31.7 g/dL (32.0-36.0); Mean Corpuscular Hemoglobin 31.7 pg (27.0-31.0); Mean Platelet Volume 10.9 fL (7.4-10.4); Platelet Count 272 10x3/uL (130-400); Red Blood Cell (RBC) Count 2.84 mill/uL (4.70-6.10); White Blood Cell (WBC) Count 5.4 10x3/uL (4.8-10.8)
[2023-08-14 05:13] LABS: Anion Gap 18 mmol/L (10-20); BUN (Urea Nitrogen) 44 mg/dL (8.9-20.6); Calc. Creatinine Clearance 12 mL/min (70-130); Calcium 8.2 mg/dL (7.8-10.44); Carbon Dioxide 25 mmol/L (22-29); Chloride 101 mmol/L (98-107); Estimated GFR 8; Glucose 138 mg/dL (70-105); Potassium 4.5 mmol/L (3.5-5.1); Sodium 139 mmol/L (136-145)
[2023-08-14] MEDS: Furosemide 40 MG TAB PO SCH (09:43)
[2023-08-14] MEDS: Famotidine 20 MG TAB PO SCH (09:43)
[2023-08-14] MEDS: hydrALAZINE 25 MG TAB PO SCH ×3 (09:44→20:33)
[2023-08-14] MEDS: Labetalol HCl 100 MG TAB PO SCH ×2 (09:44→20:34)
[2023-08-14] MEDS: NIFEdipine XL 60 MG ER.TAB PO SCH ×2 (09:44→20:35)
[2023-08-14] MEDS ORDERED: cloNIDine 0.2 MG TAB PO SCH (10:45)
[2023-08-14] MEDS: HumaLOG 300 UNITS/3 ML VIAL SC PRN ×2 (12:23→16:18)
[2023-08-14] MEDS: cloNIDine 0.2 MG TAB PO SCH (20:33)
[2023-08-15] MEDS: Labetalol HCl 100 MG TAB PO SCH ×2 (08:32→19:27)
[2023-08-15] MEDS: NIFEdipine XL 60 MG ER.TAB PO SCH ×2 (08:33→19:28)
[2023-08-15] MEDS ORDERED: Heparin 10,000 UNITS/ 10 ML VIAL ONE (08:46)
[2023-08-15] MEDS ORDERED: hydrOXYzine 25 MG TAB PO PRN (10:04)
[2023-08-15] MEDS ORDERED: hydrALAZINE 25 MG TAB PO SCH (10:05)
[2023-08-15] MEDS: hydrALAZINE 25 MG TAB PO SCH ×3 (10:18→19:29)
[2023-08-15] MEDS: hydrOXYzine 10 MG TAB PO SCH ×2 (14:19→14:23)
[2023-08-15] MEDS: Furosemide 40 MG TAB PO SCH (14:20)
[2023-08-15] MEDS: cloNIDine 0.2 MG TAB PO SCH ×2 (14:20→19:29)
[2023-08-15] MEDS: Famotidine 20 MG TAB PO SCH (14:20)
[2023-08-15] MEDS: HumaLOG 300 UNITS/3 ML VIAL SC PRN (17:03)
[2023-08-16 05:23] LABS: Albumin 3.5 g/dL (3.5-5.0); Anion Gap 13 mmol/L (10-20); BUN (Urea Nitrogen) 37 mg/dL (8.9-20.6); BUN/Creatinine Ratio 5.58; Calc. Creatinine Clearance 14 mL/min (70-130); Carbon Dioxide 28 mmol/L (22-29); Chloride 102 mmol/L (98-107); Estimated GFR 10; Glucose 152 mg/dL (70-105); Phosphorus 6.3 mg/dL (2.3-4.7); Potassium 4.5 mmol/L (3.5-5.1); Sodium 138 mmol/L (136-145)
[2023-08-16] MEDS: HumaLOG 300 UNITS/3 ML VIAL SC PRN (05:36)
[2023-08-16] MEDS: hydrALAZINE 20 MG/ML VIAL SLOW IVP PRN (05:48)
[2023-08-16] MEDS: Furosemide 40 MG TAB PO SCH (08:35)
[2023-08-16] MEDS: cloNIDine 0.2 MG TAB PO SCH (08:36)
[2023-08-16] MEDS: Famotidine 20 MG TAB PO SCH (08:36)
[2023-08-16] MEDS: NIFEdipine XL 60 MG ER.TAB PO SCH (08:36)
[2023-08-16] MEDS: Labetalol HCl 100 MG TAB PO SCH (08:36)
[2023-08-16] MEDS: hydrALAZINE 25 MG TAB PO SCH ×2 (08:36→15:17)
[2023-08-16 13:23] VITALS: BMI 23.5
[2023-08-16 15:49] VITALS: BP 153/88; TEMP 98.2
== END 2023-08-16 15:47 | disposition home or self-care (01) | DRG 291 ==
LOC: ERS 23:42 → ERHOLD 08-09 03:00 → CCU 08-09 04:00 → T4-B 08-10 08:54
PROVIDERS: ADMIT Student in an Organized Health Care Education/Training Program; ATTEND Internal Medicine
PROC: 5A1D70Z Performance of Urinary Filtration, Intermittent, Less than 6 Hours Per Day (ICD-10-PCS; principal; 2023-08-09)
DX: I13.2 Hypertensive heart and chronic kidney disease with heart failure and with stage 5 chronic kidney disease, or end stage renal disease (principal); I50.33 Acute on chronic diastolic (congestive) heart failure; J18.0 Bronchopneumonia, unspecified organism; N18.6 End stage renal disease; I16.1 Hypertensive emergency; E11.22 Type 2 diabetes mellitus with diabetic chronic kidney disease; D63.1 Anemia in chronic kidney disease; R79.1 Abnormal coagulation profile; E11.21 Type 2 diabetes mellitus with diabetic nephropathy; Z79.4 Long term (current) use of insulin; Z11.52 Encounter for screening for COVID-19; Z91.148 Patient's other noncompliance with medication regimen for other reason
CPT/HCPCS: 36415; 36416; 71045; 76705; 80048; 80053; 80069; 83036; 83880; 84484; 85025; 85379; 86704; 90935; 93005; 93970; 96365; 96366; 96375; G0257; J0360; J1644; J1815; J1940; J7050